=== PATIENT | female | born 1990 | race Caucasian/White ===

== ENCOUNTER 2017-10-03 12:51 | Emergency (ER) | payer BC ==
[~2017-10-03 12:51] MED LIST: AZIT500T47 PO; BCP; ETON68IM2 SQ; IBU600 PO; LOR5 PO; LOR5/325 PO; NO CURRENT MEDS; NORG1TAB6 PO
--- NOTE | 2017-10-03 12:53 | ER Report ---
History and Physical Time Seen By MD: 12:53 Hx. of Stated Complaint: low abdominal pain, diarrhea since tuesday HPI/ROS 27-year-old female ambulatory to the ER states that she became ill on Tuesday he has had no fevers had lower abdominal crampy pain watery diarrhea and states that she has not traveled outside the country has not been drinking well water has not antibiotics in the last 3 months Remainder of the 14 system rev: Yes Allergies: Coded Allergies: No Known Allergies (Verified Allergy, Mild, 08/06/12) Home Meds Active Scripts Ciprofloxacin Hcl (CIPROFLOXACIN HCL) 500 Mg Tablet, 500 MG PO Q12H, #6 TAB Prov:KUSUM DUTTON APRN-C 10/03/17 Diphenoxylate Hcl/Atropine (LOMOTIL TABLET) 1 Each Tablet, 1 EACH PO TID for diarrhea for 3 Days, #10 TAB Prov:KUSUM DUTTON APRN-C 10/03/17 Discontinued Reported Medications [Oral BCP] No Conflict Check 08/06/12 Past Medical/Surgical History Appendectomy Reviewed Nurses Notes: Yes Old Medical Records Reviewed: Yes Hx Smoking: No Hx Substance Use Disorder: No Hx Alcohol Use: No Family History of: Other Constitutional Vital Sign - Last 24 Hours 10/03/17 10/03/17 10/03/17 10/03/17 12:56 12:56 13:00 13:03 Temp 97.9 Pulse 61 Resp 20 B/P (MAP) 101/63 101/63 (76) 100/70 (80) 99/71 (80) Pulse Ox 93 O2 Delivery Room Air 10/03/17 10/03/17 10/03/17 10/03/17 13:08 14:42 15:00 15:10 Pulse 72 B/P (MAP) 100/58 (72) 106/60 (75) 93/59 (70) Pulse Ox 93 Intake and Output 10/03/17 10/03/17 10/04/17 15:00 23:00 07:00 Intake Total 1000 ml Balance 1000 ml Physical Exam 27-year-old female alert and oriented no acute distress HEENT has normocephalic/ atraumatic tympanic membranes are non-reddened throat is non-reddened mucus membranes are moist neck is supple no lymphadenopathy heart rate is regular no murmurs rubs and gallops lungs clear to auscultation abdomen is soft mild tenderness periumbilical hyperactive bowel sounds Medical Decision Making Data Points Result Diagram: 10/03/17 1302 10/03/17 1302 Laboratory Hematology Test 10/03/17 13:02 10/03/17 13:05 10/03/17 13:28 Red Blood Count 5.21 M/uL (4.17-5.56) Mean Corpuscular Volume 89.0 fL (80.0-96.0) Mean Corpuscular Hemoglobin 30.0 pg (26.0-33.0) Mean Corpuscular Hemoglobin Concent 33.7 g/dL (32.0-36.0) Red Cell Distribution Width 13.4 % (11.5-14.5) Mean Platelet Volume 8.2 fL (7.2-11.1) Neutrophils (%) (Auto) 60.1 % (39.4-72.5) Lymphocytes (%) (Auto) 30.5 % (17.6-49.6) Monocytes (%) (Auto) 8.0 % (4.1-12.4) Eosinophils (%) (Auto) 0.6 % (0.4-6.7) Basophils (%) (Auto) 0.8 % (0.3-1.4) Nucleated RBC Relative Count (auto) 0.1 /100WBC Neutrophils # (Auto) 4.7 K/uL (2.0-7.4) Lymphocytes # (Auto) 2.4 K/uL (1.3-3.6) Monocytes # (Auto) 0.6 K/uL (0.3-1.0) Eosinophils # (Auto) 0.0 K/uL (0.0-0.5) Basophils # (Auto) 0.1 K/uL (0.0-0.1) Nucleated RBC Absolute Count (auto) 0.01 K/uL Sodium Level 142 mmol/L (137-145) Potassium Level 3.5 mmol/L (3.5-5.0) Chloride Level 104 mmol/L (98-107) Carbon Dioxide Level 21 mmol/L (22-31) Blood Urea Nitrogen 8 mg/dl (7-18) Creatinine 0.70 mg/dl (0.52-1.04) Glomerular Filtration Rate Calc > 60.0 Random Glucose 80 mg/dl (75-110) Lactate 1.1 mmol/L (0.7-2.1) Calcium Level 9.4 mg/dl (8.4-10.2) Total Bilirubin 0.5 mg/dl (0.2-1.3) Aspartate Amino Transf (AST/SGOT) 33 U/L (0-35) Alanine Aminotransferase (ALT/SGPT) 27 U/L (0-56) Alkaline Phosphatase 117 U/L (0-126) Total Protein 8.4 g/dl (6.3-8.2) Albumin 4.6 g/dl (3.5-5.0) Amylase Level 57 U/L (0-110) Lipase 22 U/L (23-300) Human Chorionic Gonadotropin, Qual Negative (NEGATIVE) Urine Color Yellow Urine Clarity Slightly-cloudy Urine pH 5.0 pH (4.8-9.5) Urine Specific [place] 1.023 Urine Protein Negative mg/dL (NEGATIVE) Urine Glucose (UA) Negative mg/dL (NEGATIVE) Urine Ketones Negative mg/dL (NEGATIVE) Urine Blood Moderate (NEGATIVE) Urine Nitrite Negative (NEGATIVE) Urine Bilirubin Negative (NEGATIVE) Urine Urobilinogen Negative mg/dL (0.2-1.9) Urine Leukocyte Esterase Trace (NEGATIVE) Urine RBC 1 /HPF (0-2/HPF) Urine WBC 6 /HPF (0-5/HPF) Urine Squamous Epithelial Cells Many /LPF (</=FEW) Urine Bacteria Negative /HPF (NONE-FEW) Urine Mucus Few /HPF (NONE-FEW) Chemistry Test 10/03/17 13:02 10/03/17 13:05 10/03/17 13:28 White Blood Count 7.8 k/uL (4.5-11.0) Red Blood Count 5.21 M/uL (4.17-5.56) Hemoglobin 15.6 g/dL (12.0-16.0) Hematocrit 46.4 % (34.0-47.0) Mean Corpuscular Volume 89.0 fL (80.0-96.0) Mean Corpuscular Hemoglobin 30.0 pg (26.0-33.0) Mean Corpuscular Hemoglobin Concent 33.7 g/dL (32.0-36.0) Red Cell Distribution Width 13.4 % (11.5-14.5) Platelet Count 360 K/uL (150-450) Mean Platelet Volume 8.2 fL (7.2-11.1) Neutrophils (%) (Auto) 60.1 % (39.4-72.5) Lymphocytes (%) (Auto) 30.5 % (17.6-49.6) Monocytes (%) (Auto) 8.0 % (4.1-12.4) Eosinophils (%) (Auto) 0.6 % (0.4-6.7) Basophils (%) (Auto) 0.8 % (0.3-1.4) Nucleated RBC Relative Count (auto) 0.1 /100WBC Neutrophils # (Auto) 4.7 K/uL (2.0-7.4) Lymphocytes # (Auto) 2.4 K/uL (1.3-3.6) Monocytes # (Auto) 0.6 K/uL (0.3-1.0) Eosinophils # (Auto) 0.0 K/uL (0.0-0.5) Basophils # (Auto) 0.1 K/uL (0.0-0.1) Nucleated RBC Absolute Count (auto) 0.01 K/uL Glomerular Filtration Rate Calc > 60.0 Lactate 1.1 mmol/L (0.7-2.1) Calcium Level 9.4 mg/dl (8.4-10.2) Total Bilirubin 0.5 mg/dl (0.2-1.3) Aspartate Amino Transf (AST/SGOT) 33 U/L (0-35) Alanine Aminotransferase (ALT/SGPT) 27 U/L (0-56) Alkaline Phosphatase 117 U/L (0-126) Total Protein 8.4 g/dl (6.3-8.2) Albumin 4.6 g/dl (3.5-5.0) Amylase Level 57 U/L (0-110) Lipase 22 U/L (23-300) Human Chorionic Gonadotropin, Qual Negative (NEGATIVE) Urine Color Yellow Urine Clarity Slightly-cloudy Urine pH 5.0 pH (4.8-9.5) Urine Specific [place] 1.023 Urine Protein Negative mg/dL (NEGATIVE) Urine Glucose (UA) Negative mg/dL (NEGATIVE) Urine Ketones Negative mg/dL (NEGATIVE) Urine Blood Moderate (NEGATIVE) Urine Nitrite Negative (NEGATIVE) Urine Bilirubin Negative (NEGATIVE) Urine Urobilinogen Negative mg/dL (0.2-1.9) Urine Leukocyte Esterase Trace (NEGATIVE) Urine RBC 1 /HPF (0-2/HPF) Urine WBC 6 /HPF (0-5/HPF) Urine Squamous Epithelial Cells Many /LPF (</=FEW) Urine Bacteria Negative /HPF (NONE-FEW) Urine Mucus Few /HPF (NONE-FEW) Urinalysis Test 10/03/17 13:28 Urine Color Yellow Urine Clarity Slightly-cloudy Urine pH 5.0 pH (4.8-9.5) Urine Specific [place] 1.023 Urine Protein Negative mg/dL (NEGATIVE) Urine Glucose (UA) Negative mg/dL (NEGATIVE) Urine Ketones Negative mg/dL (NEGATIVE) Urine Blood Moderate (NEGATIVE) Urine Nitrite Negative (NEGATIVE) Urine Bilirubin Negative (NEGATIVE) Urine Urobilinogen Negative mg/dL (0.2-1.9) Urine Leukocyte Esterase Trace (NEGATIVE) Urine RBC 1 /HPF (0-2/HPF) Urine WBC 6 /HPF (0-5/HPF) Urine Squamous Epithelial Cells Many /LPF (</=FEW) Urine Bacteria Negative /HPF (NONE-FEW) Urine Mucus Few /HPF (NONE-FEW) ED Course/Re-evaluation Clinical Indication for ER IV: Hydration ED Course iv normal saline 1 liter iv for hydration pain better with hydration no diarrhea during stay, cbc comp neg, hcg neg, ua 1 plus . 6 wbc will treat w 3 days abx for cystitis Re-evaluation lab showing viral gastroenteritis will treat with fluids lomotil to go . f/u pcp Decision to Disposition Date: Oct 03, 2017 Decision to Disposition Time: 13:09 Depart Departure Latest Vital Signs Vital Signs Date Time Temp Pulse Resp B/P (MAP) Pulse Ox O2 Delivery O2 Flow Rate FiO2 10/03/17 15:10 93/59 (70) 10/03/17 13:08 72 93 10/03/17 12:56 97.9 20 Room Air Impression: Primary Impression: Diarrhea Condition: Improved Disposition: HOME OR SELF-CARE Referrals: [facility] 2 Days New Scripts Ciprofloxacin Hcl (CIPROFLOXACIN HCL) 500 Mg Tablet 500 MG PO Q12H, #6 TAB Prov: KUSUM DUTTON 10/03/17 Diphenoxylate Hcl/Atropine (LOMOTIL TABLET) 1 Each Tablet 1 EACH PO TID for diarrhea for 3 Days, #10 TAB Prov: KUSUM DUTTON 10/03/17 Patient Instructions: Acute Diarrhea (ED) Additional Instructions: medications as instructed see pcp KUSUM DUTTON Oct 03, 2017 12:53
[2017-10-03] MEDS ORDERED: NS(*) 0.9% 1000 ML BAG 1,000 ML IV ONE (13:06)
[2017-10-03] MEDS ORDERED: ONDANSETRON 4 MG/2 ML VIAL IVP ONE (13:10)
[2017-10-03] MEDS ORDERED: fentaNYL CITR 100 MCG/2 ML AMP IVP ONE (13:10)
[2017-10-03 13:35] LABS: PLATELET COUNT, AUTOMATED 360 K/uL (150-450)
[2017-10-03] MEDS ORDERED: DIPH-1 PO (14:19)
[2017-10-03] MEDS ORDERED: CIPR-214 PO (14:20)
[2017-10-03 15:10] VITALS: BP 93/59
== END 2017-10-03 15:15 | disposition home or self-care (01) ==
LOC: ER 13:10
DX: K52.9 Noninfective gastroenteritis and colitis, unspecified (principal); N30.90 Cystitis, unspecified without hematuria
CPT/HCPCS: 81001; 82150; 83605; 83690; 84703; 85025; 96361; 96374; 96375; 99284; J2405; J3010; J7030; 82040; 82247; 82310; 82374; 82435; 82565; 82947; 84075; 84132; 84155; 84295; 84450; 84460; 84520

== ENCOUNTER 2018-11-15 22:20 | Emergency (ER) | payer BC ==
[~2018-11-15 22:20] MED LIST changes: +CIPR-214 PO; +DIPH-1 PO
--- NOTE | 2018-11-15 22:22 | ER Report ---
History and Physical Time Seen By MD: 22:18 HPI/ROS CHIEF COMPLAINT: Diarrhea HISTORY OF PRESENT ILLNESS: 28-year-old female presents complaining of diarrhea for over one week. Patient was seen here on 10/03/18 and given 3 days of Cipro 500 mg by mouth twice a day for urinary tract symptoms. Patient's been taking a variety of [id number] antidiarrhea medication without improvement. She describes large-volume diarrhea as brown to black in color. She notes no mucous or blood. She's had no fever or chills. She notes abdominal cramps, primarily on the left side of her abdomen. She denies recent travel. She is a policy adviser by trade. She states that she keeps her dog kennels very clean. She's not been exposed to any animal diarrhea. She's not had any recent antibiotics except for the Cipro, which was prescribed. REVIEW OF SYSTEMS: Respiratory: No cough, no dyspnea. Cardiovascular: No chest pain, no palpitations. Gastrointestinal: As above Musculoskeletal: No back pain. Allergies: Coded Allergies: No Known Allergies (Verified Allergy, Mild, 11/15/18) Home Meds Active Scripts Metronidazole (FLAGYL) 500 Mg Tablet, 500 MG PO TID for infection, #21 TAB Prov:LORENE SINGLETON DO 11/15/18 Ciprofloxacin 500 Mg Tab (CIPROFLOXACIN 500 MG TAB) 500 Mg Tablet, 500 MG PO Q12H, #6 TAB Prov:KUSUM DUTTON 10/03/17 Diphenoxylate Hcl/Atropine (LOMOTIL TABLET) 1 Each Tablet, 1 EACH PO TID for diarrhea for 3 Days, #10 TAB Prov:KUSUM DUTTON 10/03/17 Reviewed Nurses Notes: Yes Old Medical Records Reviewed: Yes Hx Smoking: No Hx Substance Use Disorder: No Hx Alcohol Use: No Constitutional Vital Sign - Last 24 Hours 11/15/18 11/15/18 11/15/18 11/15/18 22:23 22:27 22:35 22:50 Temp 98.2 Pulse 68 67 62 Resp 18 B/P (MAP) 112/64 (80) 112/64 Pulse Ox 94 95 93 O2 Delivery Room Air 11/15/18 23:05 Pulse 68 Pulse Ox 94 Physical Exam General Appearance: The patient is alert, has no immediate need for airway protection and no current signs of toxicity. Vital signs stable, afebrile, pulse ox normal, skin warm, dry, pink Eyes: Pupils equal and round no injection. Respiratory: Chest is non tender, lungs are clear to auscultation. Cardiac: regular rate and rhythm Gastrointestinal: Abdomen is soft and non tender, no masses, bowel sounds normal. Musculoskeletal: Neck: Neck is supple and non tender. Extremities have full range of motion and are non tender. Skin: No rashes or lesions. DIFFERENTIAL DIAGNOSIS: After history and physical exam differential diagnosis was considered for infectious diarrhea, secretory diarrhea, C. difficile, gi ardiasis. Medical Decision Making ED Course/Re-evaluation ED Course Patient was admitted to an examination room. H&P was done. The differential diagnoses was considered. On conical examination. Patient has a benign nonsurgical abdomen. She's been having frequent diarrhea for a week. Patient notes no fever, chills, mucous or blood in her stools. Patient is exposed animal waste. Patient has requested provide a specimen of diarrhea for analysis. She'll be treated with Flagyl 500 mg 3 times a day for one week. She is advised to follow-up with primary care for referral for colonoscopy. Decision to Disposition Date: Nov 15, 2018 Decision to Disposition Time: 22:30 Depart Departure Latest Vital Signs Vital Signs Date Time Temp Pulse Resp B/P (MAP) Pulse Ox O2 Delivery O2 Flow Rate FiO2 11/15/18 23:05 68 94 11/15/18 22:27 98.2 18 112/64 Room Air Impression: Primary Impression: Diarrhea Additional Impression: Abdominal cramps Condition: Improved Disposition: HOME OR SELF-CARE New Scripts Metronidazole (FLAGYL) 500 Mg Tablet 500 MG PO TID for infection, #21 TAB Prov: LORENE SINGLETON DO 11/15/18 Patient Instructions: Acute Diarrhea (ED), Clear Liquid Diet (ED) Additional Instructions: Follow clear liquid diet for 72 hours, then advance to the brat diet, bananas, rice, applesauce and toast Avoid fatty foods, greasy foods vegetables, dairy for one week Take ibuprofen 200 mg 3 tablets 3 times a day for inflammatory pain relief Bring in a specimen of diarrhea to the lab for analysis Problem Qualifiers Primary Impression: Diarrhea Diarrhea type: unspecified type Qualified Codes: R19.7 - Diarrhea, unspecified LORENE SINGLETON DO Nov 15, 2018 22:22
[2018-11-15 22:27] VITALS: BP 112/64
[2018-11-15] MEDS ORDERED: METR-1 PO (22:36)
== END 2018-11-15 23:21 | disposition home or self-care (01) ==
LOC: ER 22:24
DX: R19.7 Diarrhea, unspecified (principal); R10.9 Unspecified abdominal pain
CPT/HCPCS: 99281

== ENCOUNTER → 2018-11-16 | Outpatient (CLI) | payer BC ==
[~2018-11-16] MED LIST changes: +METR-1 PO
== END ==
LOC: LAB 12:00
PROVIDERS: ATTEND Emergency Medicine
DX: R19.7 Diarrhea, unspecified (principal)
CPT/HCPCS: 83630; 87045; 87177; 87269; 87324; 87449